=== PATIENT | female | born 1965 | race Caucasian/White ===

== ENCOUNTER 2016-09-01 08:04 | Day surgery (SDC) | payer OTHER ==
[2016-08-31 12:49] VITALS: BMI 23.3
[2016-09-01] MEDS ORDERED: ceFAZolin SODIUM 1 GM VIAL ONE (09:48)
[2016-09-01] MEDS ORDERED: LIDOCAINE HCL/PF 2% SDV 5ML VIAL ONE (09:48)
[2016-09-01] MEDS ORDERED: KETOROLAC TROMETHAMINE 30 MG/1 ML VIAL ONE (09:48)
[2016-09-01] MEDS ORDERED: ONDANSETRON 4 MG/2 ML VIAL ONE (09:48)
[2016-09-01] MEDS ORDERED: DEXAMETHASONE SOD PHOSPHATE 4 MG/1 ML VIAL ONE (09:48)
[2016-09-01] MEDS ORDERED: ROCURONIUM BROMIDE 50 MG/5 ML VIAL ONE (09:49)
[2016-09-01] MEDS ORDERED: MIDAZOLAM HCL 2 MG/2 ML SINGLE DOSE VIAL ONE (09:49)
[2016-09-01] MEDS ORDERED: PROPOFOL 20 ML ONE ×2 (09:49)
[2016-09-01] MEDS ORDERED: GLYCOPYRROLATE 0.2 MG/1 ML VIAL ONE ×2 (12:51→12:52)
[2016-09-01] MEDS ORDERED: NEOSTIGMINE METHYLSULFATE 0.5 MG/ML - 10 ML MDV ONE (12:51)
[2016-09-01] MEDS ORDERED: ONDANSETRON 4 MG/2 ML VIAL IVPUSH PRN ×2 (13:08→13:36)
[2016-09-01] MEDS ORDERED: PROMETHAZINE HCL 25 MG/1 ML VIAL IVPUSH PRN ×2 (13:08→13:36)
--- NOTE | 2016-09-01 13:12 | HP ---
History & Physical Update - History History: No Change - Physical Physical: No Change - Assessment Assessment: No Change - Plan Plan: No Change
--- NOTE | 2016-09-01 13:16 | OP ---
Operative Note - Note: Operative Date: 09/01/16 Pre-Operative Diagnosis: Toxic nodular goiter. Operation: Subtotal thyroidectomy,( left total lobectomy. isthmusectomy, right partial , removal of body and lower pole). Findings: Bilaterally enlarged thyroid , very rubbery, and nodular. Post-Operative Diagnosis: Same as Pre-op Surgeon: Gi Harris Freight Hustler: Esteban Bean Anesthesiologist/AUTOMATIC WHEEL LINE OPERATOR: Yevgeniy Chaparro Specimens Removed: Left total lobe, isthmus, and right subtotal lobectomy. Estimated Blood Loss (mls): 150
[2016-09-01] MEDS ORDERED: IBUPROFEN 400 MG TABLET (FP) PO PRN (13:36)
[2016-09-01] MEDS ORDERED: morphine CARPU-JECT 2 MG/1 ML DISP.SYRIN IM PRN (13:38)
[2016-09-01] MEDS ORDERED: DEXTROSE 5%-0.45% SALINE 1,000 ML IV SCH (13:45)
--- NOTE | 2016-09-01 14:16 | SURG ---
Surgery Hot Air Furnace Installer Repairer Note Hot Air Furnace Installer Repairer: Esteban Bean PA-C Date of Service: 09/01/16 Diagnosis: Toxic nodular goiter. Procedure: Subtotal thyroidectomy,( left total lobectomy. isthmusectomy, right partial , removal of body and lower pole) I was present for the entirety of the operative procedure. For further detail, please refer to operative report. Visit type - Case Type Case Type: Scheduled Admission - New patient This patient is new to me today: Yes Date on this admission: 09/01/16
--- NOTE | 2016-09-01 16:50 | CONSULT ---
Consult Consult Specialty:: Endocronology Referred by:: Dr Harris Reason for Consultation:: HYperthyroidisim - History of Present Illness Chief Complaint: Admitted post thyroidectomy History of Present Illness: This is a 51 y/o f with h/o hyperthyrodisim secondary to toxic multinodular goiter who was admitted for thyroidectomy today. Pt up in the floor after surgery. C/O pain at surgery site. No other complaints. No Cp/SOB/Palpitations. No tremors or anxiety. No recent change in weight. - History Source History Provided By: Patient, Medical Record Limitations to Obtaining History: No Limitations - Past Medical History ...LMP: 08/19/15 ...: No Endocrine: Yes: Hyperthyroidism - Alcohol/Substance Use Hx Alcohol Use: Yes (OCCAS) - Smoking History Smoking history: Never smoked Have you smoked in the past 12 months: No Aproximately how many cigarettes per day: 0 Home Medications - Allergies Allergies/Adverse Reactions: Allergies Allergy/AdvReac Type Severity Reaction Status Date / Time codeine [Codeine] Allergy Rash Verified 09/01/16 08:38 - Home Medications Home Medications: Ambulatory Orders Methimazole 10 mg PO DAILY 08/31/16 Propranolol HCl [Inderal -] 10 mg PO DAILY 08/31/16 Ibuprofen [Motrin -] 400 mg PO TID #21 tablet 09/01/16 Lorazepam [Ativan] 0.5 mg PO PRN PRN 09/01/16 Review of Systems - Review of Systems Constitutional: reports: Malaise Eyes: reports: No Symptoms HENT: reports: No Symptoms Neck: reports: Other (Pain at surgical site) Cardiovascular: reports: No Symptoms Respiratory: reports: No Symptoms Gastrointestinal: reports: No Symptoms Genitourinary: reports: No Symptoms Musculoskeletal: reports: No Symptoms Integumentary: reports: No Symptoms Neurological: reports: No Symptoms Physical Exam Vital Signs: Vital Signs Temperature 98.1 F 09/01/16 15:45 Pulse Rate 76 09/01/16 15:45 Respiratory Rate 16 09/01/16 15:45 Blood Pressure 132/66 09/01/16 15:45 O2 Sat by Pulse Oximetry (%) 98 09/01/16 15:45 Constitutional: Yes: No Distress, Calm Eyes: Yes: Conjunctiva Clear, EOM Intact HENT: Yes: Atraumatic, Normocephalic Neck: Yes: Other (surgical scar front of neck) Cardiovascular: Yes: Regular Rate and Rhythm Respiratory: Yes: Regular, CTA Bilaterally Gastrointestinal: Yes: Normal Bowel Sounds, Soft Edema: No Peripheral Pulses WNL: Yes Wound/Incision: Yes: Clean/Dry Neurological: Yes: WNL Assessment/Plan AP: Hyperthyroidism sec to Toxic multinodular goiter S/P Partial thyroidectomy (left total lobectomy. isthmusectomy, right partial , removal of body and lower pole) post op management as per surgery Will monitor TFT as outpt May need LT4 replacement Will F/U
--- NOTE | 2016-09-02 10:39 | PN ---
Progress Note (short form) - Note Progress Note: Feels better pain at surgical site Vital Signs Period Temp Pulse Resp BP Sys/Oswald Pulse Ox Last 24 Hr 98.1 F-99.5 F 66-99 14-20 131-154/58-86 98-100 PE:Aox3 Neck: Supple, No JVD, Surgical site clean HEENT: PERRL, EOMI Lungs: CTA Chest Wall: Drain with reddish fluid CVS: S1S2 Abd: Benign Ext: No edema Neuro: No focal deficit CMP Calcium 8.0 mg/dL (8.5-10.1) L 09/02/16 06:00 Current Medications Generic Name Dose Route Start Last Admin Trade Name Freq PRN Reason Stop Dose Admin Fentanyl 50 mcg 09/01/16 13:36 09/01/16 14:15 Sublimaze Injection - IVPUSH 09/04/16 13:09 50 mcg [id number] PRN Administration PAIN Dextrose/Sodium Chloride 1,000 mls @ 75 mls/hr 09/01/16 13:45 09/01/16 15:25 D5-1/2ns - IV 0 mls ASDIR ESME Administration Ibuprofen 400 mg 09/01/16 13:36 09/02/16 07:07 Motrin - PO 400 mg Q6H PRN Administration PAIN Morphine Sulfate 1 mg 09/01/16 13:38 09/02/16 11:23 Morphine Injection - IM 1 mg Q6H PRN Administration PAIN AP: Hyperthyroidism S/P Partial Thyroidectomy Calcim 8.0 today Calcium Supplement Check Intact PTH Check TFT in a week as outpt. Replace as necessary
--- NOTE | 2016-09-02 11:54 | CONSULT ---
Consult Consult Specialty:: internal medicine Reason for Consultation:: s/p thyroidectomy, h/o HTN, hyperthyroid - History of Present Illness Chief Complaint: hyperthyroid History of Present Illness: 51 yo Female admitted for subtotoal thyroidectomy for toxic multinodular goiter. Patient is s/p procedure done yesterday. Has some pain at surgical site and hoarse voice. Notes breathing feeling OK. Does feel some palpitations (had bene on propranolol and metoprolol prior to procedure. - History Source History Provided By: Patient, Medical Record Limitations to Obtaining History: No Limitations - Past Medical History Cardio/Vascular: Yes: HTN ...LMP: 08/19/15 ...: No Psych: Yes: Anxiety, Other (insomnia) Endocrine: Yes: Hyperthyroidism - Alcohol/Substance Use Hx Alcohol Use: Yes (OCCAS) - Smoking History Smoking history: Never smoked Have you smoked in the past 12 months: No Aproximately how many cigarettes per day: 0 Home Medications - Allergies Allergies/Adverse Reactions: Allergies Allergy/AdvReac Type Severity Reaction Status Date / Time codeine [Codeine] Allergy Rash Verified 09/01/16 08:38 - Home Medications Home Medications: Ambulatory Orders Methimazole 10 mg PO DAILY 08/31/16 Propranolol HCl [Inderal -] 10 mg PO DAILY 08/31/16 Ibuprofen [Motrin -] 400 mg PO TID #21 tablet 09/01/16 Lorazepam [Ativan] 0.5 mg PO PRN PRN 09/01/16 Family Disease History - Family Disease History Family Disease History: CA: Mother (Brain tumor) Review of Systems - Review of Systems Constitutional: denies: Fever, Loss of Appetite, Malaise Eyes: denies: No Symptoms HENT: denies: Ear Pain, Hearing Loss Neck: reports: Pain on Movement (from surgery) Cardiovascular: reports: Palpitations. denies: Chest Pain Respiratory: denies: Cough, Wheezing Gastrointestinal: denies: Abdominal Pain, Diarrhea, Nausea Genitourinary: denies: Burning, Discharge, Dysuria Neurological: denies: Change in LOC Physical Exam Vital Signs: Vital Signs Temperature 99.5 F 09/02/16 06:15 Pulse Rate 92 H 09/02/16 06:15 Respiratory Rate 20 09/02/16 06:15 Blood Pressure 154/72 09/02/16 06:15 O2 Sat by Pulse Oximetry (%) 98 09/01/16 15:45 Constitutional: Yes: Well Nourished, No Distress, Calm Eyes: Yes: Conjunctiva Clear, EOM Intact, PERRL HENT: Yes: Atraumatic, Normocephalic Neck: Yes: Other (clean incision with mild swelling in tissues) Cardiovascular: Yes: Regular Rate and Rhythm, S1, S2. No: Murmur Respiratory: Yes: Regular, CTA Bilaterally. No: Rales, Rhonchi, Wheezes Gastrointestinal: Yes: Normal Bowel Sounds, Soft. No: Distention, Tenderness Edema: No Neurological: Yes: Alert, Oriented Labs: Laboratory Tests 09/01/16 09/01/16 09/02/16 08:10 19:30 06:00 Calcium 8.3 L 8.0 L Urine HCG, Qual Negative Assessment/Plan Toxic Multinodular Goiter Hyperthyroidism HTN Anxiety S/p subtotal thyroidectomy -resume metoprolol (elevated BP, palpitations) -seen by endo for thyroid follow-up
[2016-09-02] MEDS ORDERED: METOPROLOL SUCCINATE 100 MG TAB.SR.24H (FP) PO SCH (12:00)
[2016-09-02] MEDS ORDERED: CALCIUM (OYSTER SHELL) 500 MG TABLET (FP) PO SCH (12:00)
[2016-09-02 13:23] LABS: ALBUMIN 3.1 g/dl (3.4-5.0); ANION GAP 7 (8-16); BILIRUBIN,TOTAL 0.5 mg/dL (0.2-1.0); CALCIUM 7.9 mg/dL (8.5-10.1); CO2 29 mmol/L (21-32); CREATININE 0.8 mg/dL (0.55-1.02); GLUCOSE,RANDOM 91 mg/dL (74-106); SGOT/AST 11 U/L (15-37); SGPT/ALT 17 U/L (12-78); TOT PROT 5.8 g/dl (6.4-8.2)
[2016-09-02 13:24] LABS: ALK PHOS 59 U/L (45-117)
--- NOTE | 2016-09-02 15:19 | PN ---
Progress Note, Physician - Current Medication List Current Medications: Active Medications Calcium Carbonate (Os-Adrian 500mg -) 1,000 mg PO BID [facility] Last Admin: 09/02/16 12:34 Dose: 1,000 mg Fentanyl (Sublimaze Injection -) 50 mcg IVPUSH [id number] PRN PRN Reason: PAIN Stop: 09/04/16 13:09 Last Admin: 09/01/16 14:15 Dose: 50 mcg Dextrose/Sodium Chloride (D5-1/2ns -) 1,000 mls @ 75 mls/hr IV ASDIR [facility] Last Admin: 09/01/16 15:25 Dose: 0 mls Ibuprofen (Motrin -) 400 mg PO Q6H PRN PRN Reason: PAIN Last Admin: 09/02/16 07:07 Dose: 400 mg Metoprolol Succinate (Toprol Xl -) 100 mg PO DAILY [facility] Last Admin: 09/02/16 12:34 Dose: 100 mg Morphine Sulfate (Morphine Injection -) 1 mg IM Q6H PRN PRN Reason: PAIN Last Admin: 09/02/16 11:23 Dose: 1 mg - Objective Vital Signs: Vital Signs Temperature 99.5 F 09/02/16 06:15 Pulse Rate 92 H 09/02/16 06:15 Respiratory Rate 20 09/02/16 09:00 Blood Pressure 154/72 09/02/16 06:15 O2 Sat by Pulse Oximetry (%) 98 09/02/16 09:00 Labs: CBC, BMP 09/02/16 12:35 Assessment/Plan Patient is ambulating, wound is clean . Slightly hoarse. Calcium 7.9 mgm. Ambulating and tolerating diet. Will discharge home with oscal, and drain in place. Will remove drain in the office on 09/04/2016. Instructions given. Discharge home.
[2016-09-02 15:41] VITALS: BP 145/83; PULSE 73; TEMP 99.3
--- NOTE | 2016-09-05 08:58 | PATH ---
Surgical Pathology Report Patient Name: VY JEAN[facility]TISTE [facility]. Rec. #: [id number] /Age/Gender: 1965 (Age: 51) / F Account: [id number] Location: AMBULATORY SURG Taken: 09/01/2016 Received: 09/01/2016 Reported: 09/05/2016 Physicians: Viet Harris M.D. Specimen(s) Received SUBTOTAL THYROIDECTOMY Clinical History Thyrotoxicosis with diffuse goiter Graves' disease-toxic ? nodular goiter, ? diffuse Final Diagnosis THYROID GLAND, SUBTOTAL THYROIDECTOMY: BENIGN THYROID WITH DIFFUSE AND MULTINODULAR HYPERPLASIA WITH SCALLOPED COLLOID AND PATCHY LYMPHOCYTIC THYROIDITIS (SEE COMMENT). ONE PARATHYROID GLAND PRESENT. Comment: Clinical history of thyrotoxicosis is noted. The histologic findings are most suggestive of Graves' disease with background multinodular hyperplasia (goiter). Clinical correlations and correlations and correlations with serology studies are suggested. Electronically Signed Bridger Rosario M.D. Gross Description Received in formalin, labeled "subtotal thyroid" is a 77 g subtotal thyroidectomy specimen. The left lobe is intact, per the surgeon, and measures 8.0 x 4.3 x 2.5 cm. The isthmus measures 3.7 x 2.0 x 1.0 cm. The right lobe is resected at the superior pole, per the surgeon, and measures 5.0 x 3.8 x 2.0 cm. The outer capsule is red-brown and shaggy. The right lobe is inked red, the left lobe is inked black and the isthmus is inked green. Sectioning reveals predominantly pale turner-pink parenchyma. The left lobe displays multiple focal small hemorrhagic nodules. No definite masses are identified. Satellite Tv Technician sections are submitted in 21 cassettes as follows: 4-52-mipownngyrglhe left lobe sequentially from superior to inferior; 21-73-Vmsryit from left to right; 81-27-muizvssjqrbrkn right lobe sequentially from superior to inferior 09/01/201609/01/2016
--- NOTE | 2016-09-05 10:08 | OP ---
DATE OF OPERATION: 09/01/2016 PREOPERATIVE DIAGNOSIS: Toxic nodular goiter. POSTOPERATIVE DIAGNOSIS: Toxic nodular goiter. OPERATIVE PROCEDURE: Subtotal thyroidectomy (left total lobectomy, isthmusectomy) and right partial (removal of body and lower pole of the right lobe of the thyroid). OPERATIVE FINDINGS: Bilaterally enlarged thyroid, very rubbery, and nodular. SURGEON: Viet Harris MD OSTEOPATHIC RESIDENT: STEVENSON Khanna ANESTHESIA: General anesthesia. ANESTHESIOLOGIST: Yevgeniy Chaparro MD OPERATIVE DESCRIPTION: This 51-year-old woman was brought in for subtotal thyroidectomy. The risks, benefits, and complications were discussed with the patient. Consent was obtained. The patient was brought into the operating room. General anesthesia was administered. The neck was painted and draped. The neck was positioned in extension. A horizontal skin incision was made from one sternocleidomastoid muscle to another about one fingerbreadth above the clavicle. It was deepened through the skin, subcutaneous tissue, and the platysma muscle. 'Timeout" was called before the incision. The superior and inferior skin flaps were then placed between the platysma and the deep cervical fascia superiorly up to the hyoid bone, inferiorly anterior to and below the clavicle on either side. The sternocleidomastoid muscle was freed from the flap on either side. The strap muscles were then divided in the midline from the hyoid bone down to the suprasternal notch. The thyroid gland was then exposed, and this was from the strap muscles. There were adhesions of the strap muscles to the left lobe of the thyroid gland secondry to prior FNA biopsy. The gland was then mobilized anteriorly and medially. A similar procedure was done on the right lobe of the thyroid as well. The gland was very rubbery and very firm. The right lobe of the thyroid gland was then mobilized starting from the upper pole, dividing blood vessels as close to the gland as possible, using the LigaSure and the hemoclips. The superior and inferior parathyroid glands were identified and preserved with their blood supply intact. The inferior thyroid vessels were also divided as close to the gland as possible after its division, to the inferior parathyroid glands. The middle thyroid vein was also divided between clips and the LigaSure. The gland was mobilized medially and anteriorly. The recurrent laryngeal nerve was identified throughout its course, and preserved until its penetration into the cricothyroid muscle. The gland was then mobilized across the pretracheal fascial plane, starting with the isthmus and the lower pole of the right lobe of the thyroid gland. On the right lobe as well and on the right side, the recurrent laryngeal nerve was identified and preserved throughout its course. Both the superior and inferior parathyroid glands were again identified and preserved with their blood supply. The inferior thyroid was also divided as close to the gland as possible. The middle thyroid vein was also divided between the LigaSure and hemoclips. The gland was mobilized. The upper pole vessels were left intact and the upper pole was preserved. The gland was mobilized from the Mccoy ligament and was mobilised. A Kt clamp was placed across the gland between the upper pole and the body of the right lobe of the thyroid gland and the gland was divided. Specimens consisting of the left lobe of the thyroid gland, the isthmus, and the body and the inferior pole of the right lobe of the thyroid gland were sent to Pathology as subtotal thyroidectomy. The upper pole of the right lobe of the thyroid gland that was left intact was oversewn with continuous 3-0 Vicryl sutures from one end to the other and brought back with again a locking suture to tie it to the first one. Thus, this was a hemostatic suture. Hemostasis was satisfactory. Both recurrent laryngeal nerves were preserved and both parathyroid glands were also preserved with their blood supply intact. Hemostasis was then achieved. The wound was irrigated. A No. 10 Bryon-Dias drain was placed into the wound and brought out through a stab wound on the left side of the neck. Hemostasis was maintained. The wound was closed, approximating the strap muscles with interrupted and [id number] 3-0 Vicryl sutures, the platysma with buried interrupted 3-0 Vicryl sutures, and the skin approximated with continuous 4-0 Monocryl sutures in a running subcuticular fashion. Dermabond was applied across the skin edges. Estimated blood loss was about 50 to 100 mL. The sponge and instrument counts were correct. The patient was extubated and returned to the recovery room in satisfactory and stable condition. . Sergey DIAZ/[id number] cc: MD TYRELL Horta
== END 2016-09-02 15:57 | disposition home or self-care (01) ==
LOC: JASU-SURG 08:04 → JASUSAT 08:04 → J8W 15:40 → JASUSAT 09-02 15:57
PROVIDERS: ATTEND Specialist
PROC: 0GBH0ZZ Excision of Right Thyroid Gland Lobe, Open Approach (ICD-10-PCS; 2016-09-01)
PROC: 0GTG0ZZ Resection of Left Thyroid Gland Lobe, Open Approach (ICD-10-PCS; principal; 2016-09-01 09:30)
DX: E05.20 Thyrotoxicosis with toxic multinodular goiter without thyrotoxic crisis or storm (principal)
CPT/HCPCS: 36415; 80053; 82310; 83970; 84703; 88307-TC; 94760

== ENCOUNTER 2022-04-03 05:30 | Day surgery (SDC) | payer OTHER ==
[2022-03-30 10:32] VITALS: BMI 30.1
[2022-04-03] MEDS ORDERED: MIDAZOLAM HCL 2 MG/2 ML SINGLE DOSE VIAL ONE (08:53)
[2022-04-03] MEDS ORDERED: SUCCINYLCHOLINE CHLORIDE 200 MG/10 ML SYRINGE ONE (08:53)
[2022-04-03] MEDS ORDERED: PROPOFOL 20 ML ONE (08:53)
[2022-04-03] MEDS ORDERED: ONDANSETRON 4 MG/2 ML VIAL ONE (09:50)
[2022-04-03] MEDS ORDERED: DEXAMETHASONE SOD PHOSPHATE 4 MG/1 ML VIAL ONE (09:50)
[2022-04-03] MEDS ORDERED: ceFAZolin SODIUM 1 GM VIAL ONE (09:52)
[2022-04-03] MEDS ORDERED: ceFAZolin SODIUM 1 GM VIAL IVPB ONE (09:53)
[2022-04-03] MEDS ORDERED: ONDANSETRON 4 MG/2 ML VIAL IVPUSH PRN (10:23)
[2022-04-03] MEDS ORDERED: oxyCODONE HCL 5 MG TABLET PO PRN ×2 (10:23)
[2022-04-03] MEDS ORDERED: PROMETHAZINE HCL 25 MG/1 ML VIAL IVPUSH PRN (10:23)
[2022-04-03] MEDS ORDERED: LACTATED RINGERS SOLUTION 1,000 ML IV SCH (10:30)
[2022-04-03 12:23] VITALS: RESP 20
[2022-04-03 13:26] VITALS: BP 139/66; PULSE 77; TEMP 98
== END 2022-04-03 13:26 | disposition home or self-care (01) ==
LOC: JASU-SURG 05:30
PROVIDERS: ATTEND Obstetrics & Gynecology
PROC: 0UDB7ZX Extraction of Endometrium, Via Natural or Artificial Opening, Diagnostic (ICD-10-PCS; 2022-04-03)
PROC: 0UB98ZX Excision of Uterus, Via Natural or Artificial Opening Endoscopic, Diagnostic (ICD-10-PCS; principal; 2022-04-03 09:00)
DX: N95.0 Postmenopausal bleeding (principal); D25.9 Leiomyoma of uterus, unspecified; N84.0 Polyp of corpus uteri
CPT/HCPCS: 88305-TC; 94760

== ENCOUNTER 2023-05-26 23:07 | Emergency (ER) | payer OTHER ==
[2023-05-26 23:16] VITALS: BP 145/74; PULSE 97; RESP 18; TEMP 99.9; BMI 29.2
[2023-05-26] MEDS ORDERED: LACTATED RINGERS SOLUTION 1000 ML INFUS.BAG IV ONE (23:57)
[2023-05-26] MEDS ORDERED: DICYCLOMINE HCL 20 MG/2 ML AMPUL IM ONE (23:58)
[2023-05-27 00:48] LABS: BASO % 0.3 % (0-2.0); EOS % 0.4 % (0-4.5); HEMOGLOBIN 11.2 GM/dL (10.7-15.3); LYMPH % 17.6 % (8-40); MCH 29.5 pg (25.7-33.7); MCHC 33.9 g/dl (32.0-36.0); MEAN CELL VOLUME 87.1 fl (80-96); MEAN PLT VOLUME 7.8 fl (7.5-11.1); MONO % 6.9 % (3.8-10.2); NEUT % 74.8 % (42.8-82.8); PLATELET COUNT 251 10^3/uL (134-434); RBC 3.79 M/mm3 (3.60-5.2); RDW 12.5 % (11.6-15.6); WHITE BLOOD COUNT 9.6 K/mm3 (4.0-10.0)
[2023-05-27 01:04] LABS: POTASSIUM 3.7 mmol/L (3.5-5.1)
[2023-05-27 01:06] LABS: BLOOD UREA NITROGEN 6.6 mg/dL (7-18); CALCIUM 8.4 mg/dL (8.5-10.1)
[2023-05-27 01:07] LABS: ALBUMIN 3.4 g/dl (3.4-5.0); MAGNESIUM 2.1 mg/dL (1.8-2.4)
[2023-05-27 01:09] LABS: CREATININE 0.9 mg/dL (0.55-1.3); PHOSPHOROUS 2.7 mg/dL (2.5-4.9)
[2023-05-27 01:11] LABS: BILIRUBIN,TOTAL 0.4 mg/dL (0.2-1); TOT PROT 6.2 g/dl (6.4-8.2)
[2023-05-27] MEDS ORDERED: AMOX TR/POT CLAV 875MG/125MG TABLETS (FP) PO ONE (02:12)
[2023-05-27] MEDS ORDERED: AMOX TR/POT CLAV 875MG/125MG TABLETS (FP) ONE (02:24)
[2023-05-27 05:28] LABS: URINE APPEARANCE CLEAR; URINE BILIRUBIN NEGATIVE (NEGATIVE); URINE COLOR YELLOW; URINE GLUCOSE (UA) NEGATIVE (NEGATIVE); URINE KETONE TRACE (NEGATIVE); URINE LEUK ESTERASE NEGATIVE (NEGATIVE); URINE NITRITE NEGATIVE (NEGATIVE); URINE PROTEIN NEGATIVE (NEGATIVE); URINE UROBILINOGEN 0.2 mg/dL (0.2-1.0)
== END 2023-05-27 02:23 | disposition home or self-care (01) ==
LOC: JER 23:07
PROC: 3E023GC Introduction of Other Therapeutic Substance into Muscle, Percutaneous Approach (ICD-10-PCS; principal; 2023-05-26)
DX: R11.2 Nausea with vomiting, unspecified (principal); K52.9 Noninfective gastroenteritis and colitis, unspecified; R19.7 Diarrhea, unspecified; R10.9 Unspecified abdominal pain; Z20.822 Contact with and (suspected) exposure to COVID-19
CPT/HCPCS: 0241U-QW; 36415; 74177-TC; 80053; 81003; 83690; 83735; 84100; 85025; 87086; 93005; 93010; 99285-25; Q9967

== ENCOUNTER 2025-03-04 05:01 | Emergency (ER) | payer OTHER ==
[2025-03-04 05:07] VITALS: BP 170/70; PULSE 68; RESP 20; TEMP 97.9; BMI 30.9
[2025-03-04] MEDS ORDERED: ACETAMINOPHEN 325 MG TABLET (FP) ONE (05:45)
[2025-03-04] MEDS ORDERED: LIDOCAINE 5% TOPICAL PATCH ONE (05:45)
[2025-03-04] MEDS: LIDOCAINE 5% TOPICAL PATCH TP ONE (05:46)
[2025-03-04] MEDS: ACETAMINOPHEN 500 MG TABLET (FP) PO ONE (05:47)
[2025-03-04] MEDS ORDERED: LIDOCAINE PATCH REMOVAL MC SCH (22:00)
== END 2025-03-04 06:00 | disposition home or self-care (01) ==
LOC: JER 05:01
DX: M54.2 Cervicalgia (principal); G89.29 Other chronic pain
CPT/HCPCS: 99283-25